=== PATIENT | male | born 1950 | race Caucasian/White ===

== ENCOUNTER 2019-07-08 14:00 | Observation (INO) | payer MEDICARE ==
[~2019-07-08] VITALS: Ht 182.9 cm; Wt 94.3 kg
[2019-07-08 12:18] LABS: BASOPHILS % (AUTO) 0.5 % (0.0-5.0); EOSINOPHILS % (AUTO) 3.8 % (0.0-8.0); HEMATOCRIT 40.6 % (42-54); LYMPHOCYTES % (AUTO) 43.6 % (21.0-51.0); MEAN CORPUSCULAR HEMOGLOBIN 35.1 pg (27.0-33.0); MEAN CORPUSCULAR HGB CONC 34.5 g/dL (32.0-36.0); MEAN CORPUSCULAR VOLUME 101.8 fL (79-99); NEUTROPHILS % (AUTO) 37.9 % (40.0-77.0); PLATELET COUNT (AUTO) 212 K/uL (130-400); RED BLOOD CELL COUNT(AUTO) 3.99 MIL/uL (4.50-6.20); RED CELL DISTRIBUTION WIDTH 12.1 % (11.0-15.5); WHITE BLOOD COUNT (AUTO) 6.1 K/uL (4.8-10.8)
[2019-07-08 12:38] LABS: CREATININE 1.1 mg/dL (0.5-1.5); POTASSIUM 4.2 mmol/L (3.5-5.1)
[~2019-07-08 14:00] MED LIST: HYDR25TA PO
[2019-07-08 15:15] VITALS: BP 146/68
[2019-07-08] MEDS ORDERED: METF-444 PO (15:48)
[2019-07-08] MEDS ORDERED: LIVER CARE PO (15:48)
[2019-07-08] MEDS ORDERED: [UNRECOGNIZED DRUG - OTHER] PO (15:48)
[2019-07-08] MEDS ORDERED: COLD & COUGH PO (15:48)
[2019-07-08] MEDS ORDERED: BUPROPION PO (15:48)
[2019-07-08] MEDS ORDERED: AMLO1CAP14 PO (15:48)
[2019-07-08] MEDS ORDERED: FOLIC ACID PO (15:48)
[2019-07-08] MEDS ORDERED: MELA10TA2 PO (15:48)
[2019-07-08] MEDS ORDERED: PRAV20TA4 PO (15:48)
[2019-07-08] MEDS ORDERED: CHRO400T8 PO (15:48)
[2019-07-08] MEDS ORDERED: LORA10TA7 PO (15:48)
[2019-07-08] MEDS ORDERED: CALC500T7 PO (15:48)
[2019-07-09] VITALS (27 sets, daily range): BP systolic 137–157; BP diastolic 67–96
[2019-07-09] MEDS ORDERED: CEFAZOLIN SODIUM 1 GM VIAL ONE (09:19)
[2019-07-09] MEDS ORDERED: SODIUM CHLORIDE 0.9% 1000ML 1,000 ML IV ONE (09:19)
[2019-07-09] MEDS ORDERED: LIDOCAINE PF 2% 5ML ABBOJECT ONE (09:51)
[2019-07-09] MEDS ORDERED: GLYCOPYRROLATE 1 MG/5 ML SYRINGE ONE (09:52)
[2019-07-09] MEDS ORDERED: DEXAMETHASONE SOD PHOSPHATE 10MG/ML 1ML VIAL ONE ×2 (09:52→10:30)
[2019-07-09] MEDS ORDERED: ONDANSETRON HCL 4 MG/2 ML VIAL ONE (09:52)
[2019-07-09] MEDS ORDERED: MIDAZOLAM HCL 1 MG/ML 2ML VIAL ONE (09:52)
[2019-07-09] MEDS ORDERED: NEOSTIGMINE 5MG/5ML SYR IV ONE (09:52)
[2019-07-09] MEDS ORDERED: ROCURONIUM 10MG/1ML SYR 10 MG/ML ML ONE (09:52)
[2019-07-09] MEDS ORDERED: PROPOFOL 10 MG/ML 20ML VIAL IV ONE (09:52)
[2019-07-09] MEDS ORDERED: FENTANYL CITRATE PF 50 MCG/1 ML 2ML VIAL ONE ×2 (09:53→11:08)
[2019-07-09] MEDS: CEFAZOLIN SODIUM 1 GM VIAL ONE ×2 (10:00→10:30)
[2019-07-09] MEDS ORDERED: BUPIVACAINE/EPI/PF 0.25% 30ML VIAL IJ ONE (10:15)
[2019-07-09] MEDS ORDERED: CALCIUM CARBON 500MG CHEW TAB PO PRN (12:15)
[2019-07-09] MEDS ORDERED: MORPHINE SULFATE 2 MG/ML 1ML SYG IVP PRN (12:15)
[2019-07-09] MEDS ORDERED: TRAMADOL HCL 50 MG TABLET PO PRN (16:30)
[2019-07-09] MEDS ORDERED: METFORMIN HCL 500 MG TABLET PO SCH (17:00)
[2019-07-09] MEDS: LACTATED RINGERS 1000ML 1,000 ML IV SCH (17:39)
[2019-07-09] MEDS: INSULIN HUMULIN R 100 UNIT/ML 3ML SQ SCH ×2 (17:40→20:38)
[2019-07-09] MEDS ORDERED: CEFAZOLIN SODIUM 1 GM VIAL IVP SCH (18:00)
[2019-07-09] MEDS ORDERED: CHROMIUM PICOLINATE PO SCH (21:00)
[2019-07-09] MEDS ORDERED: **HM**(Melatonin 10 MG) PO SCH (21:00)
[2019-07-09] MEDS ORDERED: ATORVASTATIN CALCIUM 10 MG TABLET PO SCH (21:00)
[2019-07-09] MEDS ORDERED: COUGH PO SCH (21:00)
[2019-07-09] MEDS ORDERED: COLD PO SCH (21:00)
[2019-07-10 00:23] VITALS: BP 145/64
[2019-07-10] MEDS: LACTATED RINGERS 1000ML 1,000 ML IV SCH (00:56)
[2019-07-10 04:00] VITALS: BP 155/71
[2019-07-10] MEDS: INSULIN HUMULIN R 100 UNIT/ML 3ML SQ SCH (07:30)
[2019-07-10 08:00] VITALS: BP 162/71
--- NOTE | 2019-07-10 08:50 | NUR ---
Dressing changed using aseptic technique, applied non-adherent dressing covered with transparent tegaderm. Patient educated on keeping incision clean and dry. Care of incision reviewed per Dr. Shell's instruction. Patient verbalized understanding. PIV to RH removed, bleeding controlled, dressing applied. Prescriptions provided to patient. Assisted patient downstairs to emergency entrance, patient instructed not to lift items more than 10-15 pounds. Spouse also instructed on restriction. Spouse received and verbalized understanding. Patient transported home by spouse.
[2019-07-10] MEDS ORDERED: [UNRECOGNIZED DRUG - OTHER] PO SCH (09:00)
[2019-07-10] MEDS ORDERED: [UNRECOGNIZED DRUG - OTHER] PO SCH (09:00)
[2019-07-10] MEDS ORDERED: FOLIC ACID 1 MG TABLET PO SCH (09:00)
[2019-07-10] MEDS ORDERED: AMLODIPINE-BENAZEPRIL 5-20 MG PO SCH (09:00)
[2019-07-10] MEDS ORDERED: BUPROPION HCL 150 MG TABLET.SA PO SCH (09:00)
[2019-07-10] MEDS ORDERED: CARE PO SCH (09:00)
[2019-07-10] MEDS ORDERED: HYDROCHLOROTHIAZIDE 25 MG TABLET PO SCH (09:00)
[2019-07-10] MEDS ORDERED: LORATADINE 10 MG TABLET PO SCH (09:00)
--- NOTE | 2019-07-10 15:20 | NUR ---
Patient was discharged before OBRIEN Letter was given to sign.
== END 2019-07-10 08:50 | disposition home or self-care (01) ==
LOC: DAHIP 07-09 08:28 → 3AH 07-09 13:12 → EDSTATUS 07-09 14:00
PROVIDERS: ADMIT Neurological Surgery; ATTEND Neurological Surgery
DX: G91.2 (Idiopathic) normal pressure hydrocephalus (principal); G93.89 Other specified disorders of brain; E78.5 Hyperlipidemia, unspecified; E11.9 Type 2 diabetes mellitus without complications; Z98.2 Presence of cerebrospinal fluid drainage device
CPT/HCPCS: 36415; 62223; 80048; 82948 ×5; 85025; 96374; A4215; A4221; A4222; A4223; A4300; A4600; A4663; A6204; A6260; C1889; G0378 ×18; J0690 ×3; J1100 ×2; J1815 ×3; J2001; J2250; J2405; J2704; J2710; J3010 ×2; J3490 ×2; J7030; J7120 ×3

== ENCOUNTER → 2019-08-12 | Outpatient (CLI) | payer MEDICARE ==
[~2019-08-12] MED LIST changes: +AMLO1CAP14 PO; +BUPROPION PO; +CALC500T7 PO; +CHRO400T8 PO; +COLD & COUGH PO; +FOLIC ACID PO; +LIVER CARE PO; +LORA10TA7 PO; +MELA10TA2 PO; +METF-444 PO; +PRAV20TA4 PO; +[UNRECOGNIZED DRUG - OTHER] PO
== END | disposition home or self-care (01) ==
LOC: RAH 10:39
PROVIDERS: ATTEND Neurological Surgery
DX: G31.89 Other specified degenerative diseases of nervous system (principal); I67.82 Cerebral ischemia; G91.2 (Idiopathic) normal pressure hydrocephalus
CPT/HCPCS: 70450

== ENCOUNTER → 2020-01-20 | Outpatient (CLI) | payer MEDICARE | END | disposition home or self-care (01) | LOC: RAH 14:45 | PROVIDERS: ATTEND Internal Medicine | DX: G91.9 Hydrocephalus, unspecified (principal) | CPT/HCPCS: 70450 ==

== ENCOUNTER → 2020-03-02 | Outpatient (CLI) | payer MEDICARE | END | disposition home or self-care (01) | LOC: RAH 10:46 | PROVIDERS: ATTEND Neurological Surgery | DX: G91.8 Other hydrocephalus (principal) | CPT/HCPCS: 70450 ==

== ENCOUNTER → 2021-12-20 | Outpatient (CLI) | payer OTHER ==
[~2021-12-20] MED LIST changes: -AMLO1CAP14 PO; +AMLO1CAP87 PO
== END | disposition home or self-care (01) ==
LOC: RAH 14:28
PROVIDERS: ATTEND Internal Medicine
DX: G91.9 Hydrocephalus, unspecified (principal); Z98.2 Presence of cerebrospinal fluid drainage device
CPT/HCPCS: 70450

== ENCOUNTER → 2023-05-01 | Outpatient (CLI) | payer OTHER | END | disposition home or self-care (01) | LOC: RAH 13:54 | PROVIDERS: ATTEND Internal Medicine | DX: G31.9 Degenerative disease of nervous system, unspecified (principal); G91.9 Hydrocephalus, unspecified; I67.82 Cerebral ischemia | CPT/HCPCS: 70450 ==